=== PATIENT | female | born 1950 | race Caucasian/White ===

== ENCOUNTER → 2021-09-10 | Outpatient (CLI) | payer MEDICARE, OTHER ==
--- NOTE | 2021-09-10 16:30 | KCIC ---
EXAM: Lumbar spine MRI without contrast. HISTORY: Lumbar radiculopathy. TECHNIQUE: Multiplanar, multisequence magnetic resonance imaging of the lumbar spine was performed wi thout contrast. COMPARISON: None. FINDINGS: There is 4 mm grade 1 anterolisthesis of L5 on S1. There is 3 mm grade 1 anterolisthesis of L4 on L5. There is 2 mL retrolisthesis of L1 on L2. There is multilevel endplate remodeling and oste ophytosis. There are multiple endplate Schmorl's nodes. There are few benign osseous hemangiomas. The re is no suspicious osseous lesion. There is no acute or subacute fracture. The conus terminates at L 1. At T10-T11, there is a broad-based posterior central disc protrusion superimposed on a disc bulge and endplate osteophytosis. There is moderate bilateral facet arthropathy. There is mild bilateral rudy inal stenosis. There is mild central canal stenosis and slight flattening of the ventral aspect of th e spinal cord. At T11-T12, there is a disc bulge and endplate remodeling. There is mild right and moderate left face t arthropathy. There is no stenosis. At T12-L1, there is a shallow posterior central disc protrusion and annular tear superimposed on a di sc bulge and endplate remodeling. There is mild right and moderate left facet arthropathy. There is n o stenosis. At L1-L2, there is a disc bulge and endplate osteophytosis. There is mild retrolisthesis. There is mi ld bilateral foraminal stenosis. At L2-L3, there is a disc bulge and endplate remodeling. There is mild bilateral facet arthropathy. T here is no stenosis. At L3-L4, there is a disc bulge and endplate remodeling. There is mild right and mild to moderate lef t facet arthropathy. There is mild bilateral foraminal stenosis. At L4-L5, there is a disc bulge and endplate remodeling. There is severe bilateral facet arthropathy. There is grade 1 anterolisthesis. There is moderate left greater than right foraminal stenosis. Ther e is moderate central canal stenosis. At L5-S1, there are bilateral extraforaminal to lateral disc osteophyte complexes superimposed on a d isc bulge and endplate remodeling. There is severe right and moderate left facet arthropathy. There i s grade 1 anterolisthesis. There is a 4 mm right facet joint synovial cyst projecting into the right dorsal central canal. There is mild left foraminal stenosis. There is mild central canal stenosis. 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 This results in stenosis at the aforementioned levels. The central canal and foramina l stenosis is most significant at L4-L5. Electronically signed by: Gloria Dumont MD (09/10/2021 4:27 PM) [id number]
== END ==
LOC: KCIC MRI 14:18
PROVIDERS: ATTEND Physician Assistant Medical
DX: M47.817 Spondylosis without myelopathy or radiculopathy, lumbosacral region (principal); M47.815 Spondylosis without myelopathy or radiculopathy, thoracolumbar region; M51.25 Other intervertebral disc displacement, thoracolumbar region; M51.27 Other intervertebral disc displacement, lumbosacral region; M48.05 Spinal stenosis, thoracolumbar region; M48.07 Spinal stenosis, lumbosacral region; M25.78 Osteophyte, vertebrae; M71.38 Other bursal cyst, other site; M54.40 Lumbago with sciatica, unspecified side; M51.46 Schmorl's nodes, lumbar region
CPT/HCPCS: 72148